=== PATIENT | female | born 1950 | race African-American/Black ===

== ENCOUNTER 2020-04-28 13:20 | Observation (INO) | payer MEDICARE ==
--- NOTE | 2020-04-28 14:05 | RAD ---
XR Chest 1 View Portable HISTORY: Chest pain COMPARISON: 06/18/2016 FINDINGS: The heart size enlarged. The aorta is tortuous. The lungs are well expanded without lobar c onsolidation, pneumothoraces or pleural effusions. There is no evidence of maya pulmonary edema. Degenerative changes are seen in the spine. IMPRESSION: No radiographic evidence of acute cardiopulmonary process.
[2020-04-28] MEDS ORDERED: Aspirin Chewable 81 MG TAB ONE (14:39)
[2020-04-28] MEDS ORDERED: Nitroglycerin 0.4 MG TAB 1 EACH ONE (14:39)
[2020-04-28 15:24] LABS: #Eosinphils 0.2 thou/uL (0.0-0.7); #Lymphocytes 1.7 thou/uL (1.20-3.40); #Monocytes 0.7 thou/uL (0.11-0.59); #Neutrophils 6.9 thou/uL (1.40-6.50); %Basophils 0.2 % (0.0-1.0); %Eosinophils 2.1 % (0.0-10.0); %Lymphocytes 18.4 % (21.0-51.0); %Monocytes 6.9 % (0.0-10.0); %Neutrophils 72.4 % (42.0-75.0); Hemoglobin 13.5 g/dL (12.0-16.0); Mean Corpuscular HGB CONC 32.6 g/dL (32.0-36.0); Mean Corpuscular Hemoglobin 28.1 pg (27.0-31.0); Mean Corpuscular Volume 86.2 fL (78.0-98.0); Mean Platelet Volume 7.1 fL (7.4-10.4); Platelet Count 255 thou/uL (130-400); Red Blood Cell (RBC) Count 4.79 mill/uL (4.20-5.40); White Blood Cell (WBC) Count 9.5 thou/uL (4.8-10.8)
[2020-04-28] MEDS ORDERED: Morphine 4 MG/ML VIAL ONE ×2 (15:27→21:00)
[2020-04-28] MEDS ORDERED: Furosemide 20 MG/2 ML VIAL ONE (15:43)
[2020-04-28 15:55] LABS: ALT (SGPT) 12 U/L (8-55); AST (SGOT) 19 U/L (5-34); Albumin 3.8 g/dL (3.4-4.8); Alkaline Phosphatase 112 U/L (40-110); Anion Gap 15 mmol/L (10-20); BUN (Urea Nitrogen) 10 mg/dL (9.8-20.1); Bilirubin, Total 0.4 mg/dL (0.2-1.2); CK (CPK) 46 U/L (29-168); Calc. Creatinine Clearance 0 mL/min (70-130); Calcium 8.8 mg/dL (7.8-10.44); Carbon Dioxide 24 mmol/L (23-31); Chloride 104 mmol/L (98-107); Globulin 3.9 g/dL (2.4-3.5); Glucose 108 mg/dL (80-115); Lipase 14 U/L (8-78); Potassium 3.8 mmol/L (3.5-5.1); Protein, Total 7.7 g/dL (5.8-8.1); Sodium 139 mmol/L (136-145)
[2020-04-28] MEDS ORDERED: Senokot S 8.6-50 MG TAB PO PRN (16:58)
[2020-04-28] MEDS ORDERED: Ondansetron ODT 4 MG TAB PO PRN (16:58)
[2020-04-28] MEDS ORDERED: Acetaminophen 325 MG TAB PO PRN (16:58)
[2020-04-28] MEDS ORDERED: Labetalol HCl 100 MG/20 ML VIAL SLOW IVP PRN (19:59)
[2020-04-28] MEDS ORDERED: hydrALAZINE 20 MG/ML VIAL SLOW IVP PRN (19:59)
[2020-04-28 22:50] VITALS: BMI 50.1
[2020-04-28] MEDS: Famotidine 20 MG TAB PO SCH (23:23)
--- NOTE | 2020-04-29 00:33 | HP ---
PRIMARY INFORMATION SUPPORT PROJECT MANAGER: Alee Greco MD REASON FOR ADMISSION: "My chest hurts." HISTORY OF PRESENT ILLNESS: This is a very pleasant 69-year-old female who presents to the emergency room late this afternoon with complaints of chest pain. According to the patient, her chest pain started 2 days back, more so today and occurs while at rest, not resolving with any maneuvers or medications. The patient has a history of atrial fibrillation. At some point of time was on anticoagulation, but subsequently it was discontinued because of severe GI bleeding. The patient follows up with Dr. Alee Greco as her primary core cleaner. In the last time, she ever saw her core cleaner was 2 years ago. The patient also had extensive history of gastric ulcer for which she had an EGD with 2 large ulcers and a PPI was prescribed at that point of time along with iron supplementation. Currently, patient was evaluated in the emergency room by the ER physician with an EKG showing atypical changes and initial troponin was negative. The patient on my evaluation at bedside remained chest pain free though and extensive review in regard to her previous history was noted along with GI bleeding reason for anticoagulation discontinuation. No other complaints of abdominal pain, fever, rigors, chills, nausea, vomiting, diaphoresis, blurring of vision, tingling, numbness, burning micturition, constipation, claudication, anxiety, depression, hematuria, hematochezia, cough, expectoration, syncope, seizures, paroxysmal nocturnal dyspnea or orthopnea has been noted at this point of time. REVIEW OF SYSTEMS: Except as documented, all systems reviewed and negative. SOCIAL HISTORY: Patient denies tobacco, alcohol, or recreational drug abuse. FAMILY HISTORY: No history of coronary artery disease or hypertension. PAST SURGICAL HISTORY: None noted. MEDICATIONS AT HOME: According to the patient, she does not remember specifics of her medication except she takes Lasix on a p.r.n. basis and something for her blood pressure. PAST MEDICAL HISTORY: 1. Benign essential hypertension. 2. Chronic atrial fibrillation. 3. Morbid obesity. 4. Obstructive sleep apnea. 5. History of left breast lumpectomy. 6. Colonoscopy in 2011, almost 5 years ago. PHYSICAL EXAMINATION: GENERAL: The patient is alert, oriented, not in acute distress. VITAL SIGNS: Has a blood pressure of 160/98 mmHg, heart rate of 75 per minute, respiratory rate of 16 per minute, saturation 100% on room. Has an airway which is clear. HEENT: Atraumatic, normocephalic. NECK: Supple. No bruit. No lymphadenopathy. No thyromegaly. CV: S1, S2. Normal sinus rhythm. CHEST: Bilateral air entry present. No rhonchi. No wheeze. ABDOMEN: Soft, nontender. Bowel sounds are present. No organomegaly. EXTREMITIES: No cyanosis. No edema. No icterus. No pallor. NEUROLOGIC: Patient is alert, oriented x3. No focal motor or sensory deficits noted. HEME: No ecchymosis or petechiae. PSYCH: No depression or anxiety. DIAGNOSTIC DATA: WBC is 9.5, hemoglobin 13.5, hematocrit 41.3, platelets are 255. Sodium 139, potassium 3.8, chloride 104, carbon dioxide 24, BUN 10, creatinine 0.83, glucose 108, calcium 8.8, AST 19, ALT 12, troponin 0.020, globulin 3.9, lipase 14. An echocardiogram has been ordered. Awaiting official report. A chest x-ray shows no radiographic evidence of acute cardiopulmonary process. ASSESSMENT: 1. Chest pain to rule out acute coronary syndrome with past medical history of chronic atrial fibrillation. At this point of time, patient has been advised about Lexiscan stress test evaluation along with echocardiogram as the patient claims she has congestive heart failure. 2. Benign essential hypertension. We will continue patient's home medications once information has been obtained. 3. Hyperlipidemia. 4. History of chronic atrial fibrillation, not on anticoagulation secondary to history of gastrointestinal bleed. 5. History of gastric ulcer secondary to causing gastrointestinal bleed. Reason for not on anticoagulation. 6. History of colonoscopy and EGD. PLAN: Discussed in detail of the diagnosis, treatment, and followup with the patient. I have advised the patient about admitting to the hospitalist services for less than 2 midnights. A stress test evaluation tomorrow in a.m. along with doing an echocardiogram review. I did review with the patient's primary core cleaner in regard to further evaluation. We will continue to monitor the patient in telemetry. Discharge plan if the patient's stress test is negative. Advanced directives are full code. DVT and GI prophylaxis. Job ID: [id number]
[2020-04-29 04:09] LABS: #Lymphocytes 1.5 thou/uL (1.20-3.40); #Monocytes 1.2 thou/uL (0.11-0.59); #Neutrophils 8.8 thou/uL (1.40-6.50); %Basophils 0.3 % (0.0-1.0); %Eosinophils 0.2 % (0.0-10.0); %Lymphocytes 13.3 % (21.0-51.0); %Monocytes 10.4 % (0.0-10.0); %Neutrophils 75.9 % (42.0-75.0); Hemoglobin 11.9 g/dL (12.0-16.0); Mean Corpuscular Hemoglobin 28.2 pg (27.0-31.0); Mean Corpuscular Volume 85.3 fL (78.0-98.0); Mean Platelet Volume 7.7 fL (7.4-10.4); Platelet Count 213 thou/uL (130-400); RBC Distribution Width 12.8 % (11.5-14.5); Red Blood Cell (RBC) Count 4.21 mill/uL (4.20-5.40); White Blood Cell (WBC) Count 11.6 thou/uL (4.8-10.8)
[2020-04-29 04:34] LABS: ALT (SGPT) 9 U/L (8-55); AST (SGOT) 12 U/L (5-34); Albumin 3.3 g/dL (3.4-4.8); Alkaline Phosphatase 86 U/L (40-110); Anion Gap 12 mmol/L (10-20); BUN (Urea Nitrogen) 13 mg/dL (9.8-20.1); Bilirubin, Total 0.6 mg/dL (0.2-1.2); Calc. Creatinine Clearance 132 mL/min (70-130); Calcium 8.4 mg/dL (7.8-10.44); Carbon Dioxide 24 mmol/L (23-31); Chloride 103 mmol/L (98-107); Globulin 3.4 g/dL (2.4-3.5); Glucose 122 mg/dL (80-115); Potassium 3.4 mmol/L (3.5-5.1); Protein, Total 6.7 g/dL (5.8-8.1); Sodium 136 mmol/L (136-145)
[2020-04-29 06:37] LABS: SARS-CoV-2 PCR by NAA Not Detected (NotDetected)
[2020-04-29] MEDS ORDERED: Aspirin 325 MG TAB PO SCH (09:00)
[2020-04-29] MEDS: Famotidine 20 MG TAB PO SCH (10:01)
[2020-04-29] MEDS ORDERED: Regadenoson 0.4 MG/5 ML SYRINGE ONE (10:23)
--- NOTE | 2020-04-29 12:46 | NM ---
Radionuclide stress only myocardial perfusion scan with CT attenuation correction and SPECT imaging Left ventricular wall motion evaluation and ejection fraction HISTORY: Chest pain. FINDINGS: Lexiscan protocol. Heterogeneous uptake of radiotracer throughout the left ventricular myoc ardium. No focal perfusion defect. QGS analysis of gated SPECT images shows no focal wall motion abnormalities. Ejection fraction calcul ated at 68%. IMPRESSION : No evidence of ischemia. Normal LVEF.
[2020-04-29 18:18] VITALS: BP 137/81; TEMP 99
[2020-04-29] MEDS ORDERED: traMADol HCl 50 MG TAB PO SCH (21:00)
[2020-04-29] MEDS ORDERED: Losartan 25 MG TAB PO SCH (21:00)
[2020-04-29] MEDS ORDERED: Ferrous Sulfate 325 MG TAB PO SCH (21:00)
[2020-04-29] MEDS ORDERED: Amlodipine 5 MG TAB PO SCH (21:00)
[2020-04-29] MEDS ORDERED: FLU VACC QS2020-21(65YR UP)/PF 240 MCG/0.7 ML SYRINGE IM ONE (21:00)
[2020-04-29] MEDS ORDERED: Cholecalciferol 1,000 UNITS (25 MCG) TAB PO SCH (21:00)
--- NOTE | 2020-04-30 07:56 | DIS ---
DATE OF ADMISSION: 04/28/2020 DATE OF DISCHARGE: 04/29/2020 PRIMARY BIRD RAISER: Alee Greco MD. DISCHARGE DIAGNOSIS: 1. Atypical chest pain, likely musculoskeletal in origin. 2. History of chronic atrial fibrillation. 3. Benign essential hypertension. 4. Hyperlipidemia. 5. History of gastrointestinal bleeding with gastric ulcers. Reason for the patient not being on anticoagulation for atrial fibrillation. 6. History of colonoscopy and esophagogastroduodenoscopy. HOSPITAL COURSE: This is a 69-year-old female, who was admitted to the Hospitalist Services with complaints of chest pain. The patient had been having similar chest pressure since 2 days, not associated with any nausea or vomiting. Further, the patient was advised about serial cardiac enzymes, which were negative. Subsequently, she had a stress test evaluation done, which did not show any evidence of reversible ischemia. The patient then at this point of time was advised about discharge plan. Outpatient followup with her primary care physician in 2 to 3 weeks. All questions and concerns were addressed. The patient was hemodynamically optimized on discharge. DISPOSITION: Discharged home. PHYSICAL EXAMINATION: CVS: S1 and S2. CHEST: Bilateral air entry present. ABDOMEN: Soft. EXTREMITIES: No cyanosis. ALLERGIES: NO KNOWN DRUG ALLERGIES. ACTIVITY: As tolerated with fall precautions. DISCHARGE PLAN: The patient has been advised and educated about the diagnosis, treatment, and followup. The patient has been advised about followup care with her primary care physician in 3 weeks. TIME SPENT: The whole discharge process took me more than 35 minutes. Job ID: [id number]
[2020-04-30] MEDS ORDERED: Multivit, Therapeutic 1 TAB PO SCH (09:00)
== END 2020-04-29 18:20 | disposition home or self-care (01) ==
LOC: ERS 13:20 → 2NO 16:40
PROVIDERS: ADMIT Student in an Organized Health Care Education/Training Program; ATTEND Student in an Organized Health Care Education/Training Program
DX: R07.89 Other chest pain (principal); I48.20 Chronic atrial fibrillation, unspecified; I10 Essential (primary) hypertension; E78.5 Hyperlipidemia, unspecified; G47.33 Obstructive sleep apnea (adult) (pediatric); F41.9 Anxiety disorder, unspecified; I08.3 Combined rheumatic disorders of mitral, aortic and tricuspid valves; E66.01 Morbid (severe) obesity due to excess calories; Z68.43 Body mass index [BMI] 50.0-59.9, adult; Z79.899 Other long term (current) drug therapy; Z20.822 Contact with and (suspected) exposure to COVID-19
CPT/HCPCS: 71045; 78452; 80053 ×2; 82550; 83690; 84484 ×2; 85025 ×2; 93005; 93017; 93306; 94760; 96374; 96375; 96376; 99285; A9500; U0003; U0005; 36415; 87635; G0378; J1940; J2270; J2785

== ENCOUNTER 2020-06-15 09:32 | Outpatient (CLI) | payer MEDICARE | END 2020-06-15 09:33 | disposition home or self-care (01) | LOC: BICMAMMO 09:32 | PROVIDERS: ATTEND Family Medicine | DX: Z12.31 Encounter for screening mammogram for malignant neoplasm of breast (principal); Z13.820 Encounter for screening for osteoporosis; Z78.0 Asymptomatic menopausal state; Z91.89 Other specified personal risk factors, not elsewhere classified | CPT/HCPCS: 77063; 77067; 77080 ==

== ENCOUNTER 2020-06-15 10:22 | Outpatient (CLI) | payer MEDICARE | END 2020-06-15 10:23 | disposition home or self-care (01) | LOC: BICULT 10:22 | PROVIDERS: ATTEND Family Medicine | DX: Z13.6 Encounter for screening for cardiovascular disorders (principal) | CPT/HCPCS: 76775 ==

== ENCOUNTER 2020-07-06 10:06 | Outpatient (CLI) | payer MEDICARE | END 2020-07-06 10:07 | disposition home or self-care (01) | LOC: BICCT 10:06 | PROVIDERS: ATTEND Family Medicine | DX: R19.03 Right lower quadrant abdominal swelling, mass and lump (principal); D25.9 Leiomyoma of uterus, unspecified; K42.9 Umbilical hernia without obstruction or gangrene; N28.1 Cyst of kidney, acquired | CPT/HCPCS: 74176 ==

== ENCOUNTER 2021-04-26 15:33 | Outpatient (CLI) | payer MEDICARE | END 2021-04-26 15:34 | disposition home or self-care (01) | LOC: BICRAD 15:33 | PROVIDERS: ATTEND Family Medicine | DX: R05.9 Cough, unspecified (principal) | CPT/HCPCS: 71046 ==

== ENCOUNTER 2021-05-28 08:19 | Inpatient (IN) | payer MEDICARE ==
[2021-05-28 09:08] LABS: #Eosinphils 0.2 thou/uL (0.0-0.7); #Lymphocytes 1.3 thou/uL (1.20-3.40); #Monocytes 0.5 thou/uL (0.11-0.59); #Neutrophils 3.5 thou/uL (1.40-6.50); %Basophils 0.2 % (0.0-1.0); %Eosinophils 3.2 % (0.0-10.0); %Lymphocytes 24.1 % (21.0-51.0); %Monocytes 9.4 % (0.0-10.0); %Neutrophils 63.1 % (42.0-75.0); Hemoglobin 13.6 g/dL (12.0-16.0); Mean Corpuscular HGB CONC 31.3 g/dL (32.0-36.0); Mean Corpuscular Hemoglobin 28.4 pg (27.0-31.0); Mean Corpuscular Volume 90.5 fL (78.0-98.0); Mean Platelet Volume 8.1 fL (7.4-10.4); Platelet Count 196 thou/uL (130-400); RBC Distribution Width 13.5 % (11.5-14.5); White Blood Cell (WBC) Count 5.5 thou/uL (4.8-10.8)
[2021-05-28 09:26] LABS: INR-International Normal Ratio 1.3; PTT 46.5 sec (22.9-36.1); Prothrombin Time 16.8 sec (12.0-14.7)
[2021-05-28 09:30] LABS: ALT (SGPT) 67 U/L (8-55); AST (SGOT) 44 U/L (5-34); Albumin 3.7 g/dL (3.4-4.8); Alkaline Phosphatase 97 U/L (40-110); Anion Gap 15 mmol/L (10-20); BUN (Urea Nitrogen) 11 mg/dL (9.8-20.1); Bilirubin, Total 1.2 mg/dL (0.2-1.2); Calc. Creatinine Clearance 0 mL/min (70-130); Calcium 9.1 mg/dL (7.8-10.44); Carbon Dioxide 25 mmol/L (23-31); Chloride 104 mmol/L (98-107); Globulin 3.3 g/dL (2.4-3.5); Glucose 117 mg/dL (80-115); Potassium 3.3 mmol/L (3.5-5.1); Sodium 141 mmol/L (136-145)
[2021-05-28] MEDS ORDERED: Iopamidol-370 76% 500 ML 1 ML ONE (11:00)
[2021-05-28] MEDS ORDERED: traMADol HCl 50 MG TAB ONE (11:33)
[2021-05-28] MEDS ORDERED: Amlodipine 5 MG TAB ONE (11:33)
[2021-05-28] MEDS ORDERED: Losartan 25 MG TAB PO SCH (11:45)
[2021-05-28] MEDS ORDERED: Ondansetron PF 4 MG/2 ML Vial IVP PRN (11:58)
[2021-05-28] MEDS ORDERED: Lactated Ringer's 1,000 ML IV SCH (12:15)
[2021-05-28 12:51] LABS: Troponin I Less than 0.010 ng/mL (< 0.028)
[2021-05-28] MEDS ORDERED: Furosemide 40 MG TAB PO SCH (13:00)
[2021-05-28 13:44] LABS: Hemoglobin 13.4 g/dL (12.0-16.0)
[2021-05-28 14:18] VITALS: BMI 55.6
[2021-05-28] MEDS: hydrALAZINE 20 MG/ML VIAL SLOW IVP PRN (14:18)
[2021-05-28 15:36] LABS: Troponin I Less than 0.010 ng/mL (< 0.028)
[2021-05-28] MEDS ORDERED: Furosemide 40 MG/4 ML VIAL SLOW IVP SCH (18:00)
[2021-05-28 18:34] LABS: Hemoglobin 12.9 g/dL (12.0-16.0)
[2021-05-28] MEDS: Losartan 25 MG TAB PO SCH (20:21)
[2021-05-28] MEDS: traMADol HCl 50 MG TAB PO SCH (20:22)
[2021-05-28] MEDS ORDERED: Amlodipine 5 MG TAB PO SCH (21:00)
[2021-05-28] MEDS ORDERED: Pantoprazole 40 MG VIAL IVP SCH (21:00)
[2021-05-28] MEDS: Acetaminophen 325 MG TAB PO PRN (21:52)
[2021-05-28 22:59] LABS: SARS-CoV-2 PCR by NAA Not Detected (NotDetected)
[2021-05-29 00:57] LABS: Hemoglobin 12.5 g/dL (12.0-16.0)
[2021-05-29 05:11] LABS: #Eosinphils 0.2 thou/uL (0.0-0.7); #Lymphocytes 1.6 thou/uL (1.20-3.40); #Monocytes 0.8 thou/uL (0.11-0.59); %Basophils 0.1 % (0.0-1.0); %Eosinophils 3.7 % (0.0-10.0); %Lymphocytes 28.3 % (21.0-51.0); %Monocytes 14.6 % (0.0-10.0); %Neutrophils 53.3 % (42.0-75.0); Hemoglobin 12.5 g/dL (12.0-16.0); Mean Corpuscular Hemoglobin 28.4 pg (27.0-31.0); Mean Corpuscular Volume 91.6 fL (78.0-98.0); Platelet Count 198 thou/uL (130-400); RBC Distribution Width 13.3 % (11.5-14.5); White Blood Cell (WBC) Count 5.6 thou/uL (4.8-10.8)
[2021-05-29 05:28] LABS: ALT (SGPT) 64 U/L (8-55); AST (SGOT) 41 U/L (5-34); Albumin 3.4 g/dL (3.4-4.8); Alkaline Phosphatase 79 U/L (40-110); Anion Gap 12 mmol/L (10-20); BUN (Urea Nitrogen) 9 mg/dL (9.8-20.1); Bilirubin, Total 1.2 mg/dL (0.2-1.2); Calc. Creatinine Clearance 154 mL/min (70-130); Calcium 8.7 mg/dL (7.8-10.44); Carbon Dioxide 31 mmol/L (23-31); Chloride 102 mmol/L (98-107); Globulin 2.9 g/dL (2.4-3.5); Glucose 97 mg/dL (80-115); Potassium 3.5 mmol/L (3.5-5.1); Protein, Total 6.3 g/dL (5.8-8.1); Sodium 141 mmol/L (136-145)
[2021-05-29 07:30] LABS: Hemoglobin 12.5 g/dL (12.0-16.0)
[2021-05-29] MEDS: Multivit, Therapeutic 1 TAB PO SCH (08:30)
[2021-05-29] MEDS: Polyethylene Glycol 3350 17 GM Packet PO SCH (08:30)
[2021-05-29] MEDS ORDERED: Furosemide 40 MG TAB PO SCH (09:00)
[2021-05-29] MEDS ORDERED: Furosemide 40 MG/4 ML VIAL SLOW IVP SCH ×2 (09:00→15:15)
[2021-05-29] MEDS ORDERED: Amlodipine 5 MG TAB PO SCH (09:45)
[2021-05-29] MEDS: Amiodarone 450 MG in Dextrose 5% in Water 250 ML IVPB SCH (16:15)
[2021-05-29] MEDS: hydrALAZINE 20 MG/ML VIAL SLOW IVP PRN (16:29)
[2021-05-29] MEDS ORDERED: Nitroglycerin 0.4 MG TAB (25 Tab Bottle) ONE (16:32)
[2021-05-29] MEDS ORDERED: Nitroglycerin 0.4 MG TAB (25 Tab Bottle) SL PRN (16:47)
[2021-05-29] MEDS: Acetaminophen 325 MG TAB PO PRN (16:48)
[2021-05-29 17:23] LABS: Troponin I 0.012 ng/mL (< 0.028)
[2021-05-29] MEDS: traMADol HCl 50 MG TAB PO SCH (21:32)
[2021-05-29] MEDS: Losartan 25 MG TAB PO SCH (21:33)
[2021-05-30] MEDS: Amiodarone 450 MG in Dextrose 5% in Water 250 ML IVPB SCH ×2 (03:03→18:28)
[2021-05-30 05:51] LABS: #Eosinphils 0.3 thou/uL (0.0-0.7); #Lymphocytes 1.2 thou/uL (1.20-3.40); #Monocytes 0.8 thou/uL (0.11-0.59); #Neutrophils 4.5 thou/uL (1.40-6.50); %Basophils 0.5 % (0.0-1.0); %Eosinophils 4.7 % (0.0-10.0); %Lymphocytes 17.4 % (21.0-51.0); %Neutrophils 65.4 % (42.0-75.0); Hemoglobin 13.1 g/dL (12.0-16.0); Mean Corpuscular HGB CONC 32.4 g/dL (32.0-36.0); Mean Corpuscular Hemoglobin 29.4 pg (27.0-31.0); Mean Corpuscular Volume 90.8 fL (78.0-98.0); Mean Platelet Volume 8.4 fL (7.4-10.4); Platelet Count 181 thou/uL (130-400); RBC Distribution Width 13.3 % (11.5-14.5); Red Blood Cell (RBC) Count 4.47 mill/uL (4.20-5.40); White Blood Cell (WBC) Count 6.9 thou/uL (4.8-10.8)
[2021-05-30] MEDS: Furosemide 40 MG/4 ML VIAL SLOW IVP SCH ×2 (05:54→14:48)
[2021-05-30 06:09] LABS: Anion Gap 11 mmol/L (10-20); BUN (Urea Nitrogen) 11 mg/dL (9.8-20.1); Calc. Creatinine Clearance 157 mL/min (70-130); Calcium 8.8 mg/dL (7.8-10.44); Carbon Dioxide 30 mmol/L (23-31); Chloride 100 mmol/L (98-107); Glucose 107 mg/dL (80-115); Sodium 138 mmol/L (136-145)
[2021-05-30 06:14] LABS: Potassium 2.9 mmol/L (3.5-5.1)
[2021-05-30] MEDS ORDERED: Electrolyte Replacement Protocol FS PRN ×2 (06:38→07:15)
[2021-05-30 06:50] LABS: Magnesium 1.8 mg/dL (1.6-2.6)
[2021-05-30] MEDS ORDERED: Magnesium 2 GM/50 ML(in water) 2 GM in Premix Bag 1 BAG IVPB SCH (07:15)
[2021-05-30] MEDS: Polyethylene Glycol 3350 17 GM Packet PO SCH (08:39)
[2021-05-30] MEDS: Potassium Chloride 20 MEQ TAB PO SCH ×2 (08:39→11:35)
[2021-05-30] MEDS: Multivit, Therapeutic 1 TAB PO SCH (08:40)
[2021-05-30] MEDS: hydrALAZINE 20 MG/ML VIAL SLOW IVP PRN ×2 (08:44→12:46)
[2021-05-30] MEDS ORDERED: Amlodipine 10 MG TAB PO SCH (09:00)
[2021-05-30] MEDS ORDERED: hydrALAZINE 20 MG/ML VIAL SLOW IVP PRN (14:13)
[2021-05-30] MEDS ORDERED: Spironolactone 25 MG TAB PO SCH (14:15)
[2021-05-30] MEDS: Acetaminophen 325 MG TAB PO PRN (14:50)
[2021-05-30 15:26] LABS: Potassium 3.6 mmol/L (3.5-5.1)
[2021-05-30] MEDS: traMADol HCl 50 MG TAB PO SCH (20:44)
[2021-05-31 04:36] LABS: #Eosinphils 0.3 thou/uL (0.0-0.7); #Lymphocytes 1.3 thou/uL (1.20-3.40); #Monocytes 0.9 thou/uL (0.11-0.59); #Neutrophils 4.6 thou/uL (1.40-6.50); %Basophils 0.3 % (0.0-1.0); %Eosinophils 4.5 % (0.0-10.0); %Lymphocytes 17.7 % (21.0-51.0); %Monocytes 13.2 % (0.0-10.0); %Neutrophils 64.4 % (42.0-75.0); Hemoglobin 12.9 g/dL (12.0-16.0); Mean Corpuscular Hemoglobin 28.9 pg (27.0-31.0); Mean Platelet Volume 8.1 fL (7.4-10.4); Platelet Count 205 thou/uL (130-400); RBC Distribution Width 13.4 % (11.5-14.5); Red Blood Cell (RBC) Count 4.48 mill/uL (4.20-5.40); White Blood Cell (WBC) Count 7.1 thou/uL (4.8-10.8)
[2021-05-31 05:03] LABS: Anion Gap 9 mmol/L (10-20); BUN (Urea Nitrogen) 11 mg/dL (9.8-20.1); Calc. Creatinine Clearance 170 mL/min (70-130); Calcium 8.9 mg/dL (7.8-10.44); Carbon Dioxide 30 mmol/L (23-31); Chloride 102 mmol/L (98-107); Glucose 110 mg/dL (80-115); Potassium 3.2 mmol/L (3.5-5.1); Sodium 138 mmol/L (136-145)
[2021-05-31] MEDS: Furosemide 40 MG/4 ML VIAL SLOW IVP SCH ×2 (05:43→14:07)
[2021-05-31] MEDS ORDERED: Magnesium 2 GM/50 ML(in water) 2 GM in Premix Bag 1 BAG IVPB SCH (06:00)
[2021-05-31] MEDS ORDERED: Potassium Chloride 20 MEQ TAB PO SCH (06:00)
[2021-05-31] MEDS: hydrALAZINE 25 MG TAB PO SCH ×3 (09:31→20:55)
[2021-05-31] MEDS: Multivit, Therapeutic 1 TAB PO SCH (09:31)
[2021-05-31] MEDS: Polyethylene Glycol 3350 17 GM Packet PO SCH (09:31)
[2021-05-31] MEDS: Amiodarone 450 MG in Dextrose 5% in Water 250 ML IVPB SCH (10:05)
[2021-05-31] MEDS: Spironolactone 25 MG TAB PO SCH (10:05)
[2021-05-31] MEDS: traMADol HCl 50 MG TAB PO SCH (20:58)
[2021-06-01] MEDS: Amiodarone 450 MG in Dextrose 5% in Water 250 ML IVPB SCH (01:12)
[2021-06-01 05:09] LABS: Magnesium 1.9 mg/dL (1.6-2.6)
[2021-06-01] MEDS ORDERED: Magnesium 2 GM/50 ML(in water) 2 GM in Premix Bag 1 BAG IVPB SCH (05:45)
[2021-06-01] MEDS: Furosemide 40 MG/4 ML VIAL SLOW IVP SCH ×2 (05:58→14:37)
[2021-06-01] MEDS ORDERED: Magnesium Oxide 400 MG TAB PO SCH ×2 (06:00→09:00)
[2021-06-01 08:24] LABS: Anion Gap 12 mmol/L (10-20); BUN (Urea Nitrogen) 13 mg/dL (9.8-20.1); Calc. Creatinine Clearance 143 mL/min (70-130); Calcium 8.9 mg/dL (7.8-10.44); Carbon Dioxide 28 mmol/L (23-31); Chloride 101 mmol/L (98-107); Glucose 102 mg/dL (80-115); Potassium 3.3 mmol/L (3.5-5.1); Sodium 138 mmol/L (136-145)
[2021-06-01] MEDS: hydrALAZINE 25 MG TAB PO SCH ×3 (08:30→21:02)
[2021-06-01] MEDS: Spironolactone 25 MG TAB PO SCH (08:30)
[2021-06-01] MEDS: Multivit, Therapeutic 1 TAB PO SCH (08:31)
[2021-06-01] MEDS: Magnesium Oxide 400 MG TAB PO SCH (08:31)
[2021-06-01] MEDS: Polyethylene Glycol 3350 17 GM Packet PO SCH (08:32)
[2021-06-01] MEDS ORDERED: Potassium Chloride 20 MEQ TAB PO SCH (09:00)
[2021-06-01] MEDS: traMADol HCl 50 MG TAB PO SCH (21:02)
[2021-06-02 05:17] LABS: Anion Gap 12 mmol/L (10-20); BUN (Urea Nitrogen) 17 mg/dL (9.8-20.1); Calc. Creatinine Clearance 131 mL/min (70-130); Carbon Dioxide 28 mmol/L (23-31); Chloride 101 mmol/L (98-107); Glucose 108 mg/dL (80-115); Magnesium 2.1 mg/dL (1.6-2.6); Potassium 3.6 mmol/L (3.5-5.1); Sodium 137 mmol/L (136-145)
[2021-06-02] MEDS: Furosemide 40 MG/4 ML VIAL SLOW IVP SCH ×2 (06:25→14:13)
[2021-06-02] MEDS: Magnesium Oxide 400 MG TAB PO SCH (09:01)
[2021-06-02] MEDS: hydrALAZINE 25 MG TAB PO SCH ×3 (09:01→20:57)
[2021-06-02] MEDS: Multivit, Therapeutic 1 TAB PO SCH (09:01)
[2021-06-02] MEDS: Potassium Chloride 20 MEQ TAB PO SCH (09:01)
[2021-06-02] MEDS: Spironolactone 25 MG TAB PO SCH (09:01)
[2021-06-02] MEDS: Polyethylene Glycol 3350 17 GM Packet PO SCH (09:02)
[2021-06-02] MEDS ORDERED: Communication Order-Pharmacy FS SCH (12:30)
[2021-06-02] MEDS: traMADol HCl 50 MG TAB PO SCH (20:58)
[2021-06-02] MEDS: Amiodarone 450 MG in Dextrose 5% in Water 250 ML IVPB SCH (21:55)
[2021-06-03 04:34] LABS: Anion Gap 12 mmol/L (10-20); BUN (Urea Nitrogen) 17 mg/dL (9.8-20.1); Calc. Creatinine Clearance 140 mL/min (70-130); Calcium 8.7 mg/dL (7.8-10.44); Carbon Dioxide 28 mmol/L (23-31); Chloride 101 mmol/L (98-107); Glucose 100 mg/dL (80-115); Magnesium 2.1 mg/dL (1.6-2.6); Potassium 3.7 mmol/L (3.5-5.1); Sodium 137 mmol/L (136-145)
[2021-06-03] MEDS ORDERED: Lidocaine 1% (PF) 30 ML VIAL ONE (06:26)
[2021-06-03] MEDS: Furosemide 40 MG/4 ML VIAL SLOW IVP SCH ×2 (08:55→15:41)
[2021-06-03] MEDS ORDERED: Nitroglycerin 4.9 GM Bottle ONE (09:26)
[2021-06-03] MEDS ORDERED: Midazolam HCl 2 mg/2 ml Vial ONE ×2 (09:29→09:56)
[2021-06-03] MEDS: Acetaminophen 325 MG TAB PO PRN (10:40)
[2021-06-03] MEDS ORDERED: Acetaminophen/Codeine 30-300mg Tablet PO PRN ×2 (10:43)
[2021-06-03] MEDS ORDERED: Sodium Chloride 0.9% 200 ML IV PRN (10:43)
[2021-06-03] MEDS ORDERED: Nitroglycerin 0.4 MG TAB (25 Tab Bottle) SL PRN (10:43)
[2021-06-03] MEDS: Magnesium Oxide 400 MG TAB PO SCH (10:52)
[2021-06-03] MEDS: hydrALAZINE 25 MG TAB PO SCH ×3 (10:52→20:20)
[2021-06-03] MEDS: Multivit, Therapeutic 1 TAB PO SCH (10:52)
[2021-06-03] MEDS ORDERED: traMADol HCl 50 MG TAB PO PRN (10:52)
[2021-06-03] MEDS: Polyethylene Glycol 3350 17 GM Packet PO SCH (10:54)
[2021-06-03] MEDS: Spironolactone 25 MG TAB PO SCH (11:02)
[2021-06-03] MEDS ORDERED: Morphine 4 MG/ML VIAL SLOW IVP SCH (11:15)
[2021-06-03] MEDS ORDERED: Iopamidol 370 76% 100 ML VIAL ONE (11:40)
[2021-06-03] MEDS: Potassium Chloride 20 MEQ TAB PO SCH (15:39)
[2021-06-03] MEDS ORDERED: Morphine 4 MG/ML VIAL SLOW IVP PRN (16:00)
[2021-06-04 04:45] LABS: Anion Gap 12 mmol/L (10-20); BUN (Urea Nitrogen) 14 mg/dL (9.8-20.1); Calc. Creatinine Clearance 151 mL/min (70-130); Calcium 8.7 mg/dL (7.8-10.44); Carbon Dioxide 24 mmol/L (23-31); Chloride 103 mmol/L (98-107); Glucose 98 mg/dL (80-115); Magnesium 2.1 mg/dL (1.6-2.6); Potassium 4.2 mmol/L (3.5-5.1); Sodium 135 mmol/L (136-145)
[2021-06-04] MEDS: Furosemide 40 MG/4 ML VIAL SLOW IVP SCH ×2 (05:16→15:34)
[2021-06-04] MEDS: hydrALAZINE 25 MG TAB PO SCH ×3 (08:48→20:35)
[2021-06-04] MEDS: Potassium Chloride 20 MEQ TAB PO SCH (08:48)
[2021-06-04] MEDS: Magnesium Oxide 400 MG TAB PO SCH (08:48)
[2021-06-04] MEDS: Spironolactone 25 MG TAB PO SCH (08:48)
[2021-06-04] MEDS: Multivit, Therapeutic 1 TAB PO SCH (08:49)
[2021-06-04] MEDS: Polyethylene Glycol 3350 17 GM Packet PO SCH (08:49)
[2021-06-04] MEDS ORDERED: Digoxin 0.5 MG/2 ML AMP SLOW IVP SCH (14:30)
[2021-06-04] MEDS: Digoxin 0.5 MG/2 ML AMP SLOW IVP SCH (20:35)
[2021-06-05] MEDS: Digoxin 0.5 MG/2 ML AMP SLOW IVP SCH (03:15)
[2021-06-05 04:41] LABS: Anion Gap 12 mmol/L (10-20); BUN (Urea Nitrogen) 16 mg/dL (9.8-20.1); Calc. Creatinine Clearance 136 mL/min (70-130); Calcium 8.8 mg/dL (7.8-10.44); Carbon Dioxide 26 mmol/L (23-31); Chloride 102 mmol/L (98-107); Glucose 106 mg/dL (80-115); Magnesium 2.1 mg/dL (1.6-2.6); Potassium 3.9 mmol/L (3.5-5.1); Sodium 136 mmol/L (136-145)
[2021-06-05] MEDS: Furosemide 40 MG/4 ML VIAL SLOW IVP SCH (05:22)
[2021-06-05] MEDS: Multivit, Therapeutic 1 TAB PO SCH (08:15)
[2021-06-05] MEDS: Potassium Chloride 20 MEQ TAB PO SCH (08:15)
[2021-06-05] MEDS: hydrALAZINE 25 MG TAB PO SCH (08:15)
[2021-06-05] MEDS: Spironolactone 25 MG TAB PO SCH (08:16)
[2021-06-05] MEDS: Magnesium Oxide 400 MG TAB PO SCH (08:16)
[2021-06-05] MEDS: Polyethylene Glycol 3350 17 GM Packet PO SCH (08:16)
[2021-06-05] MEDS ORDERED: Digoxin 0.25 MG TAB PO SCH (09:00)
[2021-06-05 10:53] VITALS: TEMP 97.8
[2021-06-05 12:43] VITALS: BP 143/71
== END 2021-06-05 14:50 | disposition home or self-care (01) | DRG 286 ==
LOC: ERS 08:19 → 2NO 11:55
PROVIDERS: ADMIT Emergency Medicine; ATTEND Internal Medicine
PROC: 4A023N8 Measurement of Cardiac Sampling and Pressure, Bilateral, Percutaneous Approach (ICD-10-PCS; principal; 2021-06-03)
PROC: B2111ZZ Fluoroscopy of Multiple Coronary Arteries using Low Osmolar Contrast (ICD-10-PCS; 2021-06-03)
PROC: B2161ZZ Fluoroscopy of Right and Left Heart using Low Osmolar Contrast (ICD-10-PCS; 2021-06-03)
PROC: B4121ZZ Fluoroscopy of Hepatic Artery using Low Osmolar Contrast (ICD-10-PCS; 2021-06-03)
DX: I48.0 Paroxysmal atrial fibrillation (principal); I50.43 Acute on chronic combined systolic (congestive) and diastolic (congestive) heart failure; Z68.43 Body mass index [BMI] 50.0-59.9, adult; K64.9 Unspecified hemorrhoids; Z20.822 Contact with and (suspected) exposure to COVID-19; K59.09 Other constipation; I08.1 Rheumatic disorders of both mitral and tricuspid valves; I11.0 Hypertensive heart disease with heart failure; E66.01 Morbid (severe) obesity due to excess calories; I08.3 Combined rheumatic disorders of mitral, aortic and tricuspid valves; G47.33 Obstructive sleep apnea (adult) (pediatric); E87.6 Hypokalemia; Z87.11 Personal history of peptic ulcer disease; Z79.899 Other long term (current) drug therapy; Z98.890 Other specified postprocedural states
CPT/HCPCS: 36415; 36416; 74177; 80048; 80053; 83735; 83880; 84484; 85014; 85018; 85025; 85610; 85730; 86850; 86900; 86901; 93005; 93306; 93460; 93798; 96374; 99152; 99153; C9113; J0282; J0360; J1160; J1940; J2001; J2250; J2270; J3475; J7070; J7120; Q9967; U0003; U0005

== ENCOUNTER 2021-08-11 18:27 | Inpatient (IN) | payer MEDICARE ==
[2021-08-11] MEDS ORDERED: Furosemide 40 MG/4 ML VIAL ONE (18:56)
[2021-08-11] MEDS ORDERED: Nitroglycerin 0.4 MG TAB 1 EACH ONE (18:56)
[2021-08-11 19:04] LABS: #Eosinphils 0.2 thou/uL (0.0-0.7); #Lymphocytes 1.8 thou/uL (1.20-3.40); #Monocytes 0.7 thou/uL (0.11-0.59); #Neutrophils 5.1 thou/uL (1.40-6.50); %Basophils 0.6 % (0.0-1.0); %Eosinophils 2.9 % (0.0-10.0); %Lymphocytes 22.9 % (21.0-51.0); %Monocytes 9.1 % (0.0-10.0); %Neutrophils 64.6 % (42.0-75.0); Hemoglobin 12.9 g/dL (12.0-16.0); Mean Corpuscular HGB CONC 31.1 g/dL (32.0-36.0); Mean Corpuscular Volume 90.1 fL (78.0-98.0); Mean Platelet Volume 7.6 fL (7.4-10.4); Platelet Count 250 thou/uL (130-400); RBC Distribution Width 14.2 % (11.5-14.5); White Blood Cell (WBC) Count 7.8 thou/uL (4.8-10.8)
[2021-08-11 19:28] LABS: ALT (SGPT) 26 U/L (8-55); AST (SGOT) 24 U/L (5-34); Albumin 3.8 g/dL (3.4-4.8); Alkaline Phosphatase 78 U/L (40-110); Anion Gap 13 mmol/L (10-20); BUN (Urea Nitrogen) 12 mg/dL (9.8-20.1); Bilirubin, Total 0.7 mg/dL (0.2-1.2); Calc. Creatinine Clearance 0 mL/min (70-130); Calcium 8.8 mg/dL (7.8-10.44); Carbon Dioxide 25 mmol/L (23-31); Chloride 105 mmol/L (98-107); Globulin 3.3 g/dL (2.4-3.5); Glucose 102 mg/dL (80-115); Potassium 3.7 mmol/L (3.5-5.1); Protein, Total 7.1 g/dL (5.8-8.1); Sodium 139 mmol/L (136-145)
[2021-08-11] MEDS ORDERED: Ondansetron ODT 4 MG TAB PO PRN (21:09)
[2021-08-11] MEDS ORDERED: Acetaminophen 650 MG Suppository PR PRN (21:09)
[2021-08-11] MEDS ORDERED: Acetaminophen 325 MG TAB PO PRN (21:09)
[2021-08-11] MEDS ORDERED: Ondansetron PF 4 MG/2 ML Vial IVP PRN (21:09)
[2021-08-11 22:28] LABS: Magnesium 1.9 mg/dL (1.6-2.6)
[2021-08-12] MEDS ORDERED: hydrALAZINE 20 MG/ML VIAL SLOW IVP PRN (00:24)
[2021-08-12] MEDS ORDERED: Furosemide 40 MG/4 ML VIAL SLOW IVP SCH (00:30)
[2021-08-12] MEDS ORDERED: Electrolyte Replacement Protocol 1 EACH FS SCH (00:30)
[2021-08-12 04:59] LABS: #Eosinphils 0.2 thou/uL (0.0-0.7); #Lymphocytes 1.4 thou/uL (1.20-3.40); #Monocytes 0.9 thou/uL (0.11-0.59); #Neutrophils 5.6 thou/uL (1.40-6.50); %Basophils 0.3 % (0.0-1.0); %Eosinophils 2.4 % (0.0-10.0); %Lymphocytes 17.2 % (21.0-51.0); %Neutrophils 69.1 % (42.0-75.0); Hemoglobin 12.7 g/dL (12.0-16.0); Mean Corpuscular HGB CONC 31.1 g/dL (32.0-36.0); Mean Corpuscular Hemoglobin 28.1 pg (27.0-31.0); Mean Corpuscular Volume 90.2 fL (78.0-98.0); Mean Platelet Volume 7.6 fL (7.4-10.4); Platelet Count 218 thou/uL (130-400); RBC Distribution Width 14.3 % (11.5-14.5); Red Blood Cell (RBC) Count 4.53 mill/uL (4.20-5.40); White Blood Cell (WBC) Count 8.1 thou/uL (4.8-10.8)
[2021-08-12 05:29] LABS: Anion Gap 14 mmol/L (10-20); BUN (Urea Nitrogen) 11 mg/dL (9.8-20.1); Calc. Creatinine Clearance 147 mL/min (70-130); Calcium 9.1 mg/dL (7.8-10.44); Carbon Dioxide 23 mmol/L (23-31); Chloride 105 mmol/L (98-107); Glucose 93 mg/dL (80-115); Magnesium 1.8 mg/dL (1.6-2.6); Potassium 3.4 mmol/L (3.5-5.1); Sodium 139 mmol/L (136-145)
[2021-08-12] MEDS ORDERED: Potassium Chloride 20 MEQ TAB PO SCH ×3 (08:00→09:15)
[2021-08-12] MEDS ORDERED: Magnesium 2 GM/50 ML(in water) 2 GM in Premix Bag 1 BAG IVPB SCH (08:00)
[2021-08-12] MEDS ORDERED: Magnesium Sulfate 2 GM in Sodium Chloride 0.9% 100 ML IVPB SCH (09:00)
[2021-08-12] MEDS: Enoxaparin Sodium 40 MG/0.4 ML SYRINGE SC SCH (09:09)
[2021-08-12] MEDS: Furosemide 40 MG/4 ML VIAL SLOW IVP SCH (09:09)
[2021-08-12 11:46] LABS: SARS-CoV-2 PCR by NAA Not Detected (NotDetected)
[2021-08-13] MEDS ORDERED: traMADol HCl 50 MG TAB PO PRN (08:51)
[2021-08-13] MEDS ORDERED: Lisinopril 20 MG TAB PO SCH (09:00)
[2021-08-13] MEDS ORDERED: MEDROXYPROGESTERONE ACETATE PO SCH (09:00)
[2021-08-13] MEDS: Magnesium Oxide 400 MG TAB PO SCH (09:27)
[2021-08-13] MEDS: Multivit, Therapeutic 1 TAB PO SCH (09:27)
[2021-08-13] MEDS: hydrALAZINE 25 MG TAB PO SCH ×3 (09:27→20:59)
[2021-08-13] MEDS: Gabapentin 300 MG CAP PO SCH (09:27)
[2021-08-13] MEDS: Furosemide 40 MG/4 ML VIAL SLOW IVP SCH (09:28)
[2021-08-13] MEDS: Enoxaparin Sodium 40 MG/0.4 ML SYRINGE SC SCH (09:30)
[2021-08-13] MEDS: Digoxin 0.25 MG TAB PO SCH (09:32)
[2021-08-13 14:23] LABS: #Eosinphils 0.2 thou/uL (0.0-0.7); #Lymphocytes 1.6 thou/uL (1.20-3.40); #Monocytes 0.7 thou/uL (0.11-0.59); #Neutrophils 4.6 thou/uL (1.40-6.50); %Basophils 0.6 % (0.0-1.0); %Eosinophils 2.7 % (0.0-10.0); %Lymphocytes 22.6 % (21.0-51.0); %Monocytes 9.6 % (0.0-10.0); %Neutrophils 64.6 % (42.0-75.0); Hemoglobin 13.1 g/dL (12.0-16.0); Mean Corpuscular Hemoglobin 28.7 pg (27.0-31.0); Mean Corpuscular Volume 89.7 fL (78.0-98.0); Mean Platelet Volume 7.8 fL (7.4-10.4); Platelet Count 237 thou/uL (130-400); RBC Distribution Width 14.7 % (11.5-14.5); Red Blood Cell (RBC) Count 4.55 mill/uL (4.20-5.40); White Blood Cell (WBC) Count 7.2 thou/uL (4.8-10.8)
[2021-08-13 14:34] LABS: INR-International Normal Ratio 1.3; PTT 48.9 sec (22.9-36.1); Prothrombin Time 16.1 sec (12.0-14.7)
[2021-08-13] MEDS: Losartan 25 MG TAB PO SCH (20:58)
[2021-08-13] MEDS: Amitriptyline HCl 10 MG TAB PO SCH (20:58)
[2021-08-13] MEDS: medroxyPROGESTERone Acetate 5 MG TAB PO SCH (20:59)
[2021-08-13] MEDS ORDERED: Non-Formulary Item 1 EACH (Losartan Potassium [Cozaar] 50 MG Tab) PO SCH (21:00)
[2021-08-13] MEDS ORDERED: Non-Formulary Item 1 EACH (Sertraline Hcl [Zoloft] 50 MG Tab) PO SCH (21:00)
[2021-08-14 05:07] LABS: Anion Gap 10 mmol/L (10-20); BUN (Urea Nitrogen) 14 mg/dL (9.8-20.1); Calc. Creatinine Clearance 149 mL/min (70-130); Calcium 8.8 mg/dL (7.8-10.44); Carbon Dioxide 27 mmol/L (23-31); Chloride 104 mmol/L (98-107); Glucose 102 mg/dL (80-115); Potassium 3.4 mmol/L (3.5-5.1); Sodium 138 mmol/L (136-145)
[2021-08-14] MEDS ORDERED: Spironolactone 25 MG TAB PO SCH ×2 (08:00→08:45)
[2021-08-14] MEDS ORDERED: Potassium Chloride 20 MEQ TAB PO SCH (08:00)
[2021-08-14] MEDS: Gabapentin 300 MG CAP PO SCH (08:45)
[2021-08-14] MEDS: Magnesium Oxide 400 MG TAB PO SCH (08:45)
[2021-08-14] MEDS: hydrALAZINE 25 MG TAB PO SCH ×3 (08:45→20:48)
[2021-08-14] MEDS: Multivit, Therapeutic 1 TAB PO SCH (08:45)
[2021-08-14] MEDS: Furosemide 40 MG/4 ML VIAL SLOW IVP SCH (08:46)
[2021-08-14] MEDS: medroxyPROGESTERone Acetate 5 MG TAB PO SCH ×2 (08:46→20:49)
[2021-08-14] MEDS: Digoxin 0.25 MG TAB PO SCH (08:55)
[2021-08-14 16:37] LABS: #Eosinphils 0.2 thou/uL (0.0-0.7); #Lymphocytes 1.7 thou/uL (1.20-3.40); #Monocytes 0.6 thou/uL (0.11-0.59); #Neutrophils 4.2 thou/uL (1.40-6.50); %Basophils 0.5 % (0.0-1.0); %Eosinophils 3.2 % (0.0-10.0); %Lymphocytes 24.7 % (21.0-51.0); %Monocytes 9.3 % (0.0-10.0); %Neutrophils 62.3 % (42.0-75.0); Hemoglobin 13.4 g/dL (12.0-16.0); Mean Corpuscular HGB CONC 31.4 g/dL (32.0-36.0); Mean Corpuscular Hemoglobin 28.1 pg (27.0-31.0); Mean Corpuscular Volume 89.6 fL (78.0-98.0); Mean Platelet Volume 7.3 fL (7.4-10.4); Platelet Count 234 thou/uL (130-400); RBC Distribution Width 14.2 % (11.5-14.5); Red Blood Cell (RBC) Count 4.77 mill/uL (4.20-5.40); White Blood Cell (WBC) Count 6.7 thou/uL (4.8-10.8)
[2021-08-14] MEDS: Amitriptyline HCl 10 MG TAB PO SCH (20:47)
[2021-08-14] MEDS: Losartan 25 MG TAB PO SCH (20:48)
[2021-08-15 05:20] LABS: Anion Gap 13 mmol/L (10-20); BUN (Urea Nitrogen) 13 mg/dL (9.8-20.1); Calc. Creatinine Clearance 151 mL/min (70-130); Calcium 8.8 mg/dL (7.8-10.44); Carbon Dioxide 23 mmol/L (23-31); Chloride 105 mmol/L (98-107); Glucose 96 mg/dL (80-115); Potassium 3.5 mmol/L (3.5-5.1); Sodium 137 mmol/L (136-145)
[2021-08-15] MEDS ORDERED: Potassium Chloride 20 MEQ TAB PO SCH (08:00)
[2021-08-15] MEDS: Spironolactone 25 MG TAB PO SCH (08:58)
[2021-08-15] MEDS: Digoxin 0.25 MG TAB PO SCH (08:59)
[2021-08-15] MEDS: Gabapentin 300 MG CAP PO SCH (08:59)
[2021-08-15] MEDS: Furosemide 40 MG/4 ML VIAL SLOW IVP SCH (08:59)
[2021-08-15] MEDS: hydrALAZINE 25 MG TAB PO SCH ×3 (09:00→21:57)
[2021-08-15] MEDS: medroxyPROGESTERone Acetate 5 MG TAB PO SCH ×2 (09:01→21:58)
[2021-08-15] MEDS: Magnesium Oxide 400 MG TAB PO SCH (09:01)
[2021-08-15] MEDS: Multivit, Therapeutic 1 TAB PO SCH (09:02)
[2021-08-15] MEDS: Amitriptyline HCl 10 MG TAB PO SCH (21:58)
[2021-08-15] MEDS: Losartan 25 MG TAB PO SCH (21:58)
[2021-08-16 05:21] LABS: Anion Gap 11 mmol/L (10-20); BUN (Urea Nitrogen) 15 mg/dL (9.8-20.1); Calc. Creatinine Clearance 143 mL/min (70-130); Carbon Dioxide 25 mmol/L (23-31); Chloride 106 mmol/L (98-107); Glucose 116 mg/dL (80-115); Potassium 3.7 mmol/L (3.5-5.1); Sodium 138 mmol/L (136-145)
[2021-08-16] MEDS: Spironolactone 25 MG TAB PO SCH (09:54)
[2021-08-16] MEDS: Digoxin 0.25 MG TAB PO SCH (09:55)
[2021-08-16] MEDS: Furosemide 40 MG/4 ML VIAL SLOW IVP SCH (09:56)
[2021-08-16] MEDS: Gabapentin 300 MG CAP PO SCH (09:56)
[2021-08-16] MEDS: medroxyPROGESTERone Acetate 5 MG TAB PO SCH ×2 (09:57→19:59)
[2021-08-16] MEDS: Multivit, Therapeutic 1 TAB PO SCH (09:57)
[2021-08-16] MEDS: hydrALAZINE 25 MG TAB PO SCH ×3 (09:57→19:58)
[2021-08-16] MEDS: Magnesium Oxide 400 MG TAB PO SCH (09:57)
[2021-08-16] MEDS: Enoxaparin Sodium 40 MG/0.4 ML SYRINGE SC SCH (10:02)
[2021-08-16] MEDS: Losartan 25 MG TAB PO SCH (19:58)
[2021-08-16] MEDS: Amitriptyline HCl 10 MG TAB PO SCH (19:58)
[2021-08-17] MEDS: Multivit, Therapeutic 1 TAB PO SCH (08:46)
[2021-08-17] MEDS: Spironolactone 25 MG TAB PO SCH (08:46)
[2021-08-17] MEDS: Gabapentin 300 MG CAP PO SCH (08:47)
[2021-08-17] MEDS: Digoxin 0.25 MG TAB PO SCH (08:47)
[2021-08-17] MEDS: Magnesium Oxide 400 MG TAB PO SCH (08:47)
[2021-08-17] MEDS: hydrALAZINE 25 MG TAB PO SCH ×3 (08:48→22:14)
[2021-08-17] MEDS: medroxyPROGESTERone Acetate 5 MG TAB PO SCH ×2 (08:48→22:15)
[2021-08-17] MEDS: Enoxaparin Sodium 40 MG/0.4 ML SYRINGE SC SCH (08:49)
[2021-08-17] MEDS: Furosemide 40 MG/4 ML VIAL SLOW IVP SCH (08:58)
[2021-08-17] MEDS: Losartan 25 MG TAB PO SCH (22:14)
[2021-08-17] MEDS: Amitriptyline HCl 10 MG TAB PO SCH (22:15)
[2021-08-18] MEDS: Metolazone 5 MG TAB PO SCH (05:48)
[2021-08-18] MEDS ORDERED: Moisturizing Cream (Eucerin) 113 GM JAR TOP PRN (08:11)
[2021-08-18] MEDS ORDERED: Calcium Carbonate 500 MG ChewTAB PO PRN (08:11)
[2021-08-18] MEDS ORDERED: HYDROcodone/Acetaminophen 5/325 mg Tablet PO PRN (08:11)
[2021-08-18] MEDS ORDERED: Artificial Tear Sol 15 ML BOT EA EYE PRN (08:11)
[2021-08-18] MEDS ORDERED: GUAIFENESIN SF SOLN 200 MG/10 ML UDCUP PO PRN (08:11)
[2021-08-18] MEDS ORDERED: Senokot S 8.6-50 MG TAB PO PRN (08:11)
[2021-08-18] MEDS ORDERED: Loperamide HCl 2 MG CAP PO PRN (08:11)
[2021-08-18] MEDS ORDERED: Loratadine 10 MG TAB PO PRN (08:11)
[2021-08-18] MEDS ORDERED: Cepastat Lozenges 1 LOZ PO PRN (08:11)
[2021-08-18] MEDS: Furosemide 40 MG/4 ML VIAL SLOW IVP SCH (10:47)
[2021-08-18] MEDS: Gabapentin 300 MG CAP PO SCH (10:48)
[2021-08-18] MEDS: hydrALAZINE 25 MG TAB PO SCH ×3 (10:48→21:11)
[2021-08-18] MEDS: Magnesium Oxide 400 MG TAB PO SCH (10:49)
[2021-08-18] MEDS: Enoxaparin Sodium 40 MG/0.4 ML SYRINGE SC SCH (10:49)
[2021-08-18] MEDS: Multivit, Therapeutic 1 TAB PO SCH (10:49)
[2021-08-18] MEDS: Spironolactone 25 MG TAB PO SCH (10:50)
[2021-08-18] MEDS: medroxyPROGESTERone Acetate 5 MG TAB PO SCH ×2 (10:52→21:12)
[2021-08-18] MEDS: Digoxin 0.25 MG TAB PO SCH (10:53)
[2021-08-18] MEDS: Losartan 25 MG TAB PO SCH (21:11)
[2021-08-18] MEDS: Amitriptyline HCl 10 MG TAB PO SCH (21:12)
[2021-08-19 04:27] LABS: #Eosinphils 0.3 thou/uL (0.0-0.7); #Lymphocytes 1.8 thou/uL (1.20-3.40); #Monocytes 0.7 thou/uL (0.11-0.59); #Neutrophils 6.1 thou/uL (1.40-6.50); %Basophils 0.5 % (0.0-1.0); %Eosinophils 3.3 % (0.0-10.0); %Lymphocytes 19.7 % (21.0-51.0); %Monocytes 8.2 % (0.0-10.0); %Neutrophils 68.3 % (42.0-75.0); Hemoglobin 13.8 g/dL (12.0-16.0); Mean Corpuscular Hemoglobin 28.6 pg (27.0-31.0); Mean Corpuscular Volume 89.3 fL (78.0-98.0); Mean Platelet Volume 7.5 fL (7.4-10.4); Platelet Count 225 thou/uL (130-400); RBC Distribution Width 13.9 % (11.5-14.5); Red Blood Cell (RBC) Count 4.82 mill/uL (4.20-5.40); White Blood Cell (WBC) Count 8.9 thou/uL (4.8-10.8)
[2021-08-19 04:52] LABS: Anion Gap 12 mmol/L (10-20); BUN (Urea Nitrogen) 22 mg/dL (9.8-20.1); Calc. Creatinine Clearance 114 mL/min (70-130); Calcium 9.3 mg/dL (7.8-10.44); Carbon Dioxide 25 mmol/L (23-31); Chloride 103 mmol/L (98-107); Glucose 113 mg/dL (80-115); Phosphorus 3.9 mg/dL (2.3-4.7); Potassium 3.6 mmol/L (3.5-5.1); Sodium 136 mmol/L (136-145)
[2021-08-19] MEDS ORDERED: Magnesium 2 GM/50 ML(in water) 2 GM in Premix Bag 1 BAG IVPB SCH (05:00)
[2021-08-19] MEDS: Metolazone 5 MG TAB PO SCH (06:22)
[2021-08-19 08:39] VITALS: BMI 51.9
[2021-08-19] MEDS: Furosemide 40 MG/4 ML VIAL SLOW IVP SCH (09:18)
[2021-08-19] MEDS: Magnesium Oxide 400 MG TAB PO SCH (10:22)
[2021-08-19] MEDS: Gabapentin 300 MG CAP PO SCH (10:22)
[2021-08-19] MEDS: Multivit, Therapeutic 1 TAB PO SCH (10:22)
[2021-08-19] MEDS: Spironolactone 25 MG TAB PO SCH (10:22)
[2021-08-19] MEDS: Digoxin 0.25 MG TAB PO SCH (10:22)
[2021-08-19] MEDS: hydrALAZINE 25 MG TAB PO SCH ×3 (10:22→20:53)
[2021-08-19] MEDS: Enoxaparin Sodium 40 MG/0.4 ML SYRINGE SC SCH (10:23)
[2021-08-19] MEDS: medroxyPROGESTERone Acetate 5 MG TAB PO SCH ×2 (10:23→20:54)
[2021-08-19 12:22] LABS: SARS-CoV-2 PCR by NAA Not Detected (NotDetected)
[2021-08-19] MEDS: Amitriptyline HCl 10 MG TAB PO SCH (20:53)
[2021-08-19] MEDS: Losartan 25 MG TAB PO SCH (20:54)
[2021-08-20 04:47] LABS: Anion Gap 13 mmol/L (10-20); BUN (Urea Nitrogen) 24 mg/dL (9.8-20.1); Calc. Creatinine Clearance 117 mL/min (70-130); Calcium 9.3 mg/dL (7.8-10.44); Carbon Dioxide 23 mmol/L (23-31); Chloride 104 mmol/L (98-107); Glucose 111 mg/dL (80-115); Magnesium 1.9 mg/dL (1.6-2.6); Potassium 3.6 mmol/L (3.5-5.1); Sodium 136 mmol/L (136-145)
[2021-08-20] MEDS ORDERED: Magnesium 2 GM/50 ML(in water) 2 GM in Premix Bag 1 BAG IVPB SCH (05:30)
[2021-08-20] MEDS ORDERED: Furosemide 40 MG/4 ML VIAL SLOW IVP SCH (09:00)
[2021-08-20] MEDS: Magnesium Oxide 400 MG TAB PO SCH (09:51)
[2021-08-20] MEDS: Gabapentin 300 MG CAP PO SCH (09:51)
[2021-08-20] MEDS: Spironolactone 25 MG TAB PO SCH (09:51)
[2021-08-20] MEDS: medroxyPROGESTERone Acetate 5 MG TAB PO SCH (09:51)
[2021-08-20] MEDS: Multivit, Therapeutic 1 TAB PO SCH (09:51)
[2021-08-20 10:05] LABS: Digoxin 1.32 ng/mL (0.8-2.0)
[2021-08-20] MEDS: Enoxaparin Sodium 40 MG/0.4 ML SYRINGE SC SCH (11:15)
[2021-08-20] MEDS: Digoxin 0.25 MG TAB PO SCH (11:15)
[2021-08-20] MEDS: hydrALAZINE 25 MG TAB PO SCH (11:16)
[2021-08-20 12:35] VITALS: BP 134/85; TEMP 99
== END 2021-08-20 13:55 | disposition home or self-care (01) | DRG 291 ==
LOC: ERS 18:27 → 2NO 19:56
PROVIDERS: ADMIT Internal Medicine; ATTEND Internal Medicine
DX: I11.0 Hypertensive heart disease with heart failure (principal); I50.33 Acute on chronic diastolic (congestive) heart failure; Z68.43 Body mass index [BMI] 50.0-59.9, adult; Z20.822 Contact with and (suspected) exposure to COVID-19; I77.810 Thoracic aortic ectasia; I08.1 Rheumatic disorders of both mitral and tricuspid valves; I48.0 Paroxysmal atrial fibrillation; E66.01 Morbid (severe) obesity due to excess calories; F41.9 Anxiety disorder, unspecified; G47.33 Obstructive sleep apnea (adult) (pediatric); R06.03 Acute respiratory distress; F32.A Depression, unspecified; E87.6 Hypokalemia; N93.9 Abnormal uterine and vaginal bleeding, unspecified; Z79.01 Long term (current) use of anticoagulants; Z79.899 Other long term (current) drug therapy; Z98.890 Other specified postprocedural states; Z87.11 Personal history of peptic ulcer disease
CPT/HCPCS: 36415; 71045; 80048; 80053; 80162; 83735; 83880; 84100; 84484; 85025; 85610; 85730; 93005; 93798; 96374; J1940; J3475; J3490; U0003; U0005

== ENCOUNTER 2023-09-12 14:25 | Outpatient (CLI) | payer MEDICARE | END 2023-09-12 14:26 | disposition home or self-care (01) | LOC: BICMAMMO 14:25 | PROVIDERS: ATTEND Family Medicine | DX: Z12.31 Encounter for screening mammogram for malignant neoplasm of breast (principal); Z91.89 Other specified personal risk factors, not elsewhere classified | CPT/HCPCS: 77063; 77067 ==

== ENCOUNTER 2024-09-11 09:36 | Emergency (ER) | payer MEDICARE | END 2024-09-11 11:14 | disposition home or self-care (01) | LOC: ERS 09:36 | DX: M25.572 Pain in left ankle and joints of left foot (principal); I10 Essential (primary) hypertension; I48.91 Unspecified atrial fibrillation; X50.1XXA Overexertion from prolonged static or awkward postures, initial encounter; Y93.89 Activity, other specified; Z79.899 Other long term (current) drug therapy; Z79.82 Long term (current) use of aspirin | CPT/HCPCS: 99283 ==